=== PATIENT | female | born 1970 | race Caucasian/White ===

== ENCOUNTER 2018-07-10 12:11 | Emergency (ER) | payer OTHER ==
[2018-07-10 12:46] VITALS: BP 126/74
--- NOTE | 2018-07-10 13:20 | UC ---
Respiratory Complaint HPI - HPI Summary HPI Summary: pt describes feeling an intermittant "vibration" in lower lung area while sitting at meeting over last week. she was seen by Dr. Hodge approx 10 days ago and told she was healthy. the next day she began having vague symptoms of vibration in lower chest on exhalation. no fever/chills/cough/sinus pressure, SOB, CP, dizziness, or abd discomfort. No urinary symps. she was away at workshop last week and called Dr. Hodge 2 days ago who inst. pt to be seen here yesterday. However pt states she was fatigued from workshops so did not come in. today she feels a bit better, no new symps, "vibration" seems less noticeable, wasn't sure she needed to be seen but wanted to follow Dr. Hodge's inst. - History of Current Complaint Chief Complaint: UCGeneralIllness Stated Complaint: CHEST CONGESTION Time Seen by Provider: 07/10/18 12:39 Hx Obtained From: Patient Hx Last Menstrual Period: 2-3 weeks ago ?: No Onset/Duration: Gradual Onset Timing: Intermittent Episodes Pain Intensity: 0 Aggravating Factors: Nothing Alleviating Factors: Nothing Associated Signs And Symptoms: Negative: Dyspnea, Fever, Chills, Wheezing, Hemoptysis, Dizziness, Calf Pain, Calf Swelling, Edema, Nasal Congestion, Hoarseness, Sinus Discomfort - Allergies/Home Medications Allergies/Adverse Reactions: Allergies Allergy/AdvReac Type Severity Reaction Status Date / Time No Known Allergies Allergy Verified 07/10/18 12:46 Home Medications: Home Medications predniSONE TAB* [Deltasone 1 MG TAB*] 1 mg PO DAILY 07/10/18 [History Confirmed 07/10/18] PMH/Surg Hx/FS Hx/Imm Hx Previously Healthy: Yes - 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 Lives: With Family Alcohol Use: Rare Substance Use Type: None Smoking Status (MU): Never Smoked Tobacco Review of Systems All Other Systems Reviewed And Are Negative: Yes Constitutional: Positive: Negative. Negative: Fever, Chills, Fatigue Skin: Positive: Negative Respiratory: Negative: Shortness Of Breath, Cough Cardiovascular: Negative: Palpitations, Chest Pain Gastrointestinal: Positive: Negative Genitourinary: Positive: Negative Neurovascular: Positive: Negative Musculoskeletal: Negative: Arthralgia Neurological: Positive: Negative. Negative: Headache Psychological: Positive: Negative Physical Exam Triage Information Reviewed: Yes Appearance: Well-Appearing, No Pain Distress, Well-Nourished Vital Signs: Initial Vital Signs Temp 98.8 F 07/10/18 12:40 Pulse 69 07/10/18 12:40 Resp 14 07/10/18 12:40 BP 126/74 07/10/18 12:40 Pulse Ox 99 07/10/18 12:40 Vital Signs Reviewed: Yes Eyes: Positive: Conjunctiva Clear ENT: Negative: Nasal congestion, Nasal drainage Neck exam: Normal Respiratory Exam: Normal Respiratory: Positive: Chest non-tender, Lungs clear, Normal breath sounds. Negative: Decreased breath sounds, Crackles, Rhonchi, Wheezing Cardiovascular Exam: Normal Cardiovascular: Positive: RRR, No Murmur, Pulses Normal, Brisk Capillary Refill Musculoskeletal Exam: Normal Musculoskeletal: Positive: Strength Intact, ROM Intact Neurological Exam: Normal Neurological: Positive: Alert Psychological Exam: Normal Skin Exam: Normal Skin: Negative: Rashes Respiratory Course/Dx - Course Course Of Treatment: Spoke at length with patient. Given that Lungs are clear and she is feeling well , she is comfortable returning home with the stipulation that she will report to ER immediately if symptoms change or worsen or she develops fever. - Differential Dx/Diagnosis Differential Diagnosis/HQI/PQRI: Bronchitis, Lower Resp Infection, Other - cardiac arrythmia, GERD, dayanara's exacerbation Provider Diagnosis: No significant medical problems Discharge - Sign-Out/Discharge Documenting (check all that apply): Patient Departure All imaging exams completed and their final reports reviewed: No Studies - Discharge Plan Condition: Good Disposition: HOME Referrals: Bree Alcaraz MD [Primary Care Provider] - 2 Days Elijah Hodge MD [Medical Doctor] - 2 Days Additional Instructions: Rest Most importantly: report to ER if you develop shortness of breath, chest pain, dizziness, fever or any new or changing symptoms as discussed. Make sure you call Dr. Hodge on Thursday07/12/18 to be seen - Billing Disposition and Condition Condition: GOOD Disposition: Home
== END 2018-07-10 13:35 | disposition home or self-care (01) ==
LOC: UCEAST 12:11
DX: Z71.1 Person with feared health complaint in whom no diagnosis is made (principal)
CPT/HCPCS: 99211; G0463